=== PATIENT | female | born 1975 | race African-American/Black ===

== ENCOUNTER 2020-03-02 13:17 | Emergency (ER) | payer MEDICARE ==
[~2020-03-02] VITALS: Ht 165.1 cm; Wt 76.7 kg
[2020-03-02] MEDS: diatr meglu/diatrizoate 30ml oral sol.-(3 dose) bottle PO SCH ×3 (14:19→15:41)
[2020-03-02] MEDS ORDERED: magnesium citrate 296ml oral solution PO ONE (14:20)
[2020-03-02] MEDS ORDERED: ondansetron 4mg rapidly disintigrating tab PO ONE (16:05)
[2020-03-02] MEDS ORDERED: glycerin ADULT rectal suppository RC ONE (16:15)
[2020-03-02] MEDS ORDERED: bisacodyl 5mg tablet.DR PO ONE (16:15)
--- NOTE | 2020-03-02 16:20 | NUR ---
patient encouraged to drink her mag citrate, states it too salty, will do her best
[2020-03-02] MEDS ORDERED: bisacodyl 10mg suppository rectal RC ONE (16:30)
--- NOTE | 2020-03-02 18:08 | NUR ---
Patient produced small BM. She requests to go home and continue bowel care. Dr. Covington notified.
[2020-03-02 18:15] VITALS: BP 113/76
== END 2020-03-02 18:17 | disposition home or self-care (01) ==
LOC: ER 13:18
DX: K59.00 Constipation, unspecified (principal); R10.84 Generalized abdominal pain; F17.200 Nicotine dependence, unspecified, uncomplicated; Z88.1 Allergy status to other antibiotic agents; Z88.8 Allergy status to other drugs, medicaments and biological substances
CPT/HCPCS: 74176; 99284; Q9963